=== PATIENT | male | born 1955 | race Hispanic/Latino ===

== ENCOUNTER 2022-07-17 17:30 | Outpatient (CLI) | payer MEDICARE, OTHER | END 2022-07-17 17:31 | disposition home or self-care (01) | LOC: SLEEPLAB 17:30 | PROVIDERS: ATTEND Family Medicine | DX: G47.33 Obstructive sleep apnea (adult) (pediatric) (principal); I10 Essential (primary) hypertension; E66.9 Obesity, unspecified; R53.83 Other fatigue; R40.0 Somnolence; G47.00 Insomnia, unspecified; R06.83 Snoring | CPT/HCPCS: 95800 ==